=== PATIENT | female | born 1955 | race Caucasian/White ===

== ENCOUNTER 2024-12-24 14:08 | Inpatient (IN) | payer MEDICARE, OTHER ==
[~2024-12-24] VITALS: Ht 162.6 cm; Wt 110.9 kg
[2024-12-24] MEDS ORDERED: LEVO150T7 PO (14:19)
[2024-12-24] MEDS ORDERED: GEMFPOW3 (14:19)
[2024-12-24] MEDS ORDERED: POTA-136 PO (14:19)
[2024-12-24] MEDS ORDERED: FURO20TA2 PO (14:19)
[2024-12-24] MEDS ORDERED: ATOR1TAB21 PO (14:19)
[2024-12-24] MEDS ORDERED: HYDR-3490 PO (14:19)
[2024-12-24 14:49] LABS: BASO # 0.0 10^3/uL (0.0-0.2); BASO % 0.4 % (0.0-1.0); EOS # 0.2 10^3/uL (0.0-0.5); EOS % 2.0 % (0.0-3.0); LYMPH # 1.1 10^3/uL (1.5-5.0); LYMPH % 15.4 % (24.0-44.0); MONO # 0.8 10^3/uL (0.0-0.8); MONO % 10.7 % (2.0-8.0); NEUTROPHILS # 5.3 10^3/uL (1.5-8.5); NEUTROPHILS % 71.2 % (36.0-66.0); PLATELET COUNT, AUTOMATED 198 10^3/uL (150-450)
[2024-12-24 15:13] LABS: ALT/SGPT 19.0 U/L (7.0-40); AST/SGOT 23.0 U/L (<34); CALCIUM LEVEL 9.1 MG/DL (8.3-10.6); CARBON DIOXIDE LEVEL 39.0 MMOL/L (20-31); CHLORIDE LEVEL 90.0 MMOL/L (98-107); CREATININE FOR GFR 0.86 MG/DL (0.55-1.30); GLOMERULAR FILTRATION RATE 73.1 (>45); MAGNESIUM LEVEL 2.1 MG/DL (1.8-2.4); POTASSIUM SERUM 4.3 MMOL/L (3.5-5.1); SODIUM LEVEL 136.0 MMOL/L (136-145)
[2024-12-24] MEDS: FUROSEMIDE 40 MG/4 ML VIAL IV ONE (16:00)
[2024-12-24 16:09] LABS: FREE T4 0.82 NG/DL (0.89-1.76)
[2024-12-24] MEDS: MORPHINE 2 MG/ML 1 ML VIAL IV ONE (16:38)
[2024-12-24] MEDS ORDERED: FUROSEMIDE 40 MG/4 ML VIAL IV SCH (17:00)
[2024-12-24] MEDS ORDERED: HOME MED LIST COMPLETE! XX SCH (17:50)
[2024-12-24] MEDS ORDERED: LOPI600T PO (17:50)
[2024-12-24 18:00] LABS: CK-MB VALUE MASS 1.4 NG/ML (<3.6)
[2024-12-24] MEDS ORDERED: MAALOX 30 ML SUSP *UDC PO PRN (18:00)
[2024-12-24] MEDS ORDERED: MOM 30 ML SUSPENSION UDC PO PRN (18:00)
[2024-12-24 18:02] LABS: CPK CREATINE PHOSPHOKINASE 35.0 U/L (34-145); MB/CK RELATIVE INDEX 4.0 (< OR =4)
[2024-12-24 19:55] LABS: ESTIMATED AVERAGE GLUCOSE 134.0 MG/DL (60-110)
[2024-12-24 19:59] LABS: CHOLESTEROL LEVEL 153.0 MG/DL (<200); CHOLESTEROL RISK RATIO 2.76 (<5); LDL CHOLESTEROL 86.2 MG/DL (<100); NON-HDL-C 97.6 MG/DL; TRIGLYCERIDES LEVEL 57.0 MG/DL (<150)
[2024-12-24] MEDS: ATORVASTATIN 20 MG TAB PO SCH (21:10)
[2024-12-24] MEDS: ENOXAPARIN 40 MG/0.4 ML SYRINGE (J1650 PER 10MG) SC SCH (21:10)
[2024-12-24] MEDS: POTASSIUM CHLORIDE 10MEQ SR TABLET PO SCH (21:10)
[2024-12-24] MEDS: DOCUSATE SODIUM 100 MG CAPSULE PO SCH (21:10)
[2024-12-25] VITALS (23 sets, daily range): BP systolic 98–132; BP diastolic 55–69; TEMP 96.5–97.8; O2SAT 86–97
[2024-12-25 05:33] LABS: BASO # 0.0 10^3/uL (0.0-0.2); BASO % 0.5 % (0.0-1.0); EOS # 0.1 10^3/uL (0.0-0.5); EOS % 1.0 % (0.0-3.0); LYMPH # 0.8 10^3/uL (1.5-5.0); LYMPH % 13.9 % (24.0-44.0); MONO # 0.7 10^3/uL (0.0-0.8); MONO % 12.7 % (2.0-8.0); NEUTROPHILS # 4.2 10^3/uL (1.5-8.5); NEUTROPHILS % 71.6 % (36.0-66.0); PLATELET COUNT, AUTOMATED 206 10^3/uL (150-450)
[2024-12-25 05:56] LABS: CALCIUM LEVEL 8.9 MG/DL (8.3-10.6); CARBON DIOXIDE LEVEL 38.0 MMOL/L (20-31); CHLORIDE LEVEL 90.0 MMOL/L (98-107); CREATININE FOR GFR 0.84 MG/DL (0.55-1.30); GLOMERULAR FILTRATION RATE 75.2 (>45); MAGNESIUM LEVEL 2.2 MG/DL (1.8-2.4); POTASSIUM SERUM 4.1 MMOL/L (3.5-5.1); SODIUM LEVEL 138.0 MMOL/L (136-145)
[2024-12-25 05:58] LABS: FREE T4 0.72 NG/DL (0.89-1.76)
[2024-12-25] MEDS: LEVOTHYROXINE 150 MCG TABLET (0.15 MG) PO SCH (06:43)
[2024-12-25] MEDS: FUROSEMIDE injection 100 MG, VIAL 2 BAG 13MM ADAPTER 1 EACH in NS 100 ML IV SCH (08:16)
[2024-12-25] MEDS ORDERED: FUROSEMIDE 40 MG/4 ML VIAL IV SCH (09:00)
[2024-12-26] VITALS (33 sets, daily range): BP systolic 103–112; BP diastolic 52–72; TEMP 97–97.4; O2SAT 88–98
[2024-12-26 05:17] LABS: BASO # 0.0 10^3/uL (0.0-0.2); BASO % 0.2 % (0.0-1.0); EOS # 0.0 10^3/uL (0.0-0.5); EOS % 0.0 % (0.0-3.0); LYMPH # 0.5 10^3/uL (1.5-5.0); LYMPH % 8.1 % (24.0-44.0); MONO # 0.6 10^3/uL (0.0-0.8); MONO % 10.0 % (2.0-8.0); NEUTROPHILS # 5.1 10^3/uL (1.5-8.5); NEUTROPHILS % 81.2 % (36.0-66.0); PLATELET COUNT, AUTOMATED 208 10^3/uL (150-450)
[2024-12-26 05:42] LABS: CALCIUM LEVEL 9.6 MG/DL (8.3-10.6); CARBON DIOXIDE LEVEL 37.0 MMOL/L (20-31); CHLORIDE LEVEL 89.0 MMOL/L (98-107); CREATININE FOR GFR 1.22 MG/DL (0.55-1.30); GLOMERULAR FILTRATION RATE 48.0 (>45); MAGNESIUM LEVEL 2.3 MG/DL (1.8-2.4); POTASSIUM SERUM 4.9 MMOL/L (3.5-5.1); SODIUM LEVEL 139.0 MMOL/L (136-145)
[2024-12-26 08:46] LABS: ABG BASE EXCESS 7.9 (-2.0-2.0); ABG HCO3 40.3 MMOL/L (22.0-26.0); ABG O2 SATURATION 97.5 % (95.0-99.0); ABG STANDARD HCO3 31.7 MMOL/L. (22.0-26.0); ABG TOTAL CO2 43.3 MMOL/L (23.0-31.0)
[2024-12-26 08:49] LABS: ABG PARTIAL PRESSURE CO2 97.8 mmHg (35.0-45.0); ABG pH (ARTERIAL) 7.233 UNITS (7.350-7.450)
[2024-12-26 08:51] LABS: ABG PARTIAL PRESSURE O2 99.4 mmHg (75.0-100.0)
[2024-12-26 10:27] LABS: ABG BASE EXCESS 9.5 (-2.0-2.0); ABG HCO3 40.3 MMOL/L (22.0-26.0); ABG O2 SATURATION 94.2 % (95.0-99.0); ABG PARTIAL PRESSURE O2 71.4 mmHg (75.0-100.0); ABG STANDARD HCO3 33.2 MMOL/L. (22.0-26.0); ABG TOTAL CO2 42.9 MMOL/L (23.0-31.0); ABG pH (ARTERIAL) 7.300 UNITS (7.350-7.450)
[2024-12-26 10:30] LABS: ABG PARTIAL PRESSURE CO2 83.8 mmHg (35.0-45.0)
[2024-12-27] VITALS (30 sets, daily range): BP systolic 102–127; BP diastolic 51–57; TEMP 97.1–98; O2SAT 79–98
[2024-12-27 05:48] LABS: BASO # 0.0 10^3/uL (0.0-0.2); BASO % 0.2 % (0.0-1.0); EOS # 0.0 10^3/uL (0.0-0.5); EOS % 0.3 % (0.0-3.0); LYMPH # 0.6 10^3/uL (1.5-5.0); LYMPH % 9.5 % (24.0-44.0); MONO # 0.7 10^3/uL (0.0-0.8); MONO % 10.6 % (2.0-8.0); NEUTROPHILS # 5.3 10^3/uL (1.5-8.5); NEUTROPHILS % 79.1 % (36.0-66.0); PLATELET COUNT, AUTOMATED 169 10^3/uL (150-450)
[2024-12-27 06:11] LABS: CALCIUM LEVEL 9.3 MG/DL (8.3-10.6); CARBON DIOXIDE LEVEL 38.0 MMOL/L (20-31); CHLORIDE LEVEL 90.0 MMOL/L (98-107); CREATININE FOR GFR 1.25 MG/DL (0.55-1.30); GLOMERULAR FILTRATION RATE 46.7 (>45); MAGNESIUM LEVEL 2.4 MG/DL (1.8-2.4); POTASSIUM SERUM 4.7 MMOL/L (3.5-5.1); SODIUM LEVEL 136.0 MMOL/L (136-145)
[2024-12-27] MEDS: NYSTATIN 100,000 UNITS/GM TOPICAL PWD 15 GM TOP PRN (08:30)
[2024-12-27] MEDS: LINEZOLID 600 MG TABLET PO SCH (09:51)
[2024-12-28] VITALS (30 sets, daily range): BP systolic 108–119; BP diastolic 56–59; TEMP 96.6–97.9; O2SAT 88–98
[2024-12-28 06:05] LABS: BASO # 0.0 10^3/uL (0.0-0.2); BASO % 0.2 % (0.0-1.0); EOS # 0.1 10^3/uL (0.0-0.5); EOS % 2.3 % (0.0-3.0); LYMPH # 0.8 10^3/uL (1.5-5.0); LYMPH % 12.5 % (24.0-44.0); MONO # 0.8 10^3/uL (0.0-0.8); MONO % 13.3 % (2.0-8.0); NEUTROPHILS # 4.4 10^3/uL (1.5-8.5); NEUTROPHILS % 71.4 % (36.0-66.0); PLATELET COUNT, AUTOMATED 148 10^3/uL (150-450)
[2024-12-28 06:28] LABS: CALCIUM LEVEL 9.6 MG/DL (8.3-10.6); CARBON DIOXIDE LEVEL > 40.0 MMOL/L (20-31); CHLORIDE LEVEL 91 MMOL/L (98-107); CREATININE FOR GFR 1.01 MG/DL (0.55-1.30); GLOMERULAR FILTRATION RATE 60.3 (>45); MAGNESIUM LEVEL 2.4 MG/DL (1.8-2.4); POTASSIUM SERUM 4.3 MMOL/L (3.5-5.1); SODIUM LEVEL 139 MMOL/L (136-145)
[2024-12-28] MEDS: FUROSEMIDE 40 MG/4 ML VIAL IV ONE (10:49)
[2024-12-29] VITALS (32 sets, daily range): BP systolic 109–125; BP diastolic 56–66; TEMP 96–98.5; O2SAT 84–98
[2024-12-29 05:33] LABS: BASO # 0.0 10^3/uL (0.0-0.2); BASO % 0.2 % (0.0-1.0); EOS # 0.2 10^3/uL (0.0-0.5); EOS % 3.0 % (0.0-3.0); LYMPH # 0.7 10^3/uL (1.5-5.0); LYMPH % 13.6 % (24.0-44.0); MONO # 0.7 10^3/uL (0.0-0.8); MONO % 15.0 % (2.0-8.0); NEUTROPHILS # 3.3 10^3/uL (1.5-8.5); NEUTROPHILS % 67.8 % (36.0-66.0); PLATELET COUNT, AUTOMATED 129 10^3/uL (150-450)
[2024-12-29 05:57] LABS: CALCIUM LEVEL 9.5 MG/DL (8.3-10.6); CARBON DIOXIDE LEVEL > 40.0 MMOL/L (20-31); CHLORIDE LEVEL 92 MMOL/L (98-107); CREATININE FOR GFR 0.85 MG/DL (0.55-1.30); GLOMERULAR FILTRATION RATE 74.1 (>45); MAGNESIUM LEVEL 2.2 MG/DL (1.8-2.4); POTASSIUM SERUM 4.0 MMOL/L (3.5-5.1); SODIUM LEVEL 143 MMOL/L (136-145)
[2024-12-29 10:07] LABS: ABG BASE EXCESS 14.6 (-2.0-2.0); ABG HCO3 45.1 MMOL/L (22.0-26.0); ABG O2 SATURATION 91.3 % (95.0-99.0); ABG PARTIAL PRESSURE O2 64.5 mmHg (75.0-100.0); ABG STANDARD HCO3 38.4 MMOL/L. (22.0-26.0); ABG TOTAL CO2 47.6 MMOL/L (23.0-31.0); ABG pH (ARTERIAL) 7.359 UNITS (7.350-7.450)
[2024-12-29 10:08] LABS: ABG PARTIAL PRESSURE CO2 81.9 mmHg (35.0-45.0)
[2024-12-29] MEDS: FUROSEMIDE 100 MG/10 ML VIAL IV ONE (10:30)
[2024-12-30] VITALS (31 sets, daily range): BP systolic 102–121; BP diastolic 56–58; TEMP 96.3–98.5; O2SAT 82–99
[2024-12-30 05:43] LABS: BASO # 0.0 10^3/uL (0.0-0.2); BASO % 0.4 % (0.0-1.0); EOS # 0.3 10^3/uL (0.0-0.5); EOS % 5.0 % (0.0-3.0); LYMPH # 0.6 10^3/uL (1.5-5.0); LYMPH % 11.3 % (24.0-44.0); MONO # 0.7 10^3/uL (0.0-0.8); MONO % 13.2 % (2.0-8.0); NEUTROPHILS # 3.6 10^3/uL (1.5-8.5); NEUTROPHILS % 69.7 % (36.0-66.0); PLATELET COUNT, AUTOMATED 110 10^3/uL (150-450)
[2024-12-30 06:17] LABS: CALCIUM LEVEL 9.5 MG/DL (8.3-10.6); CARBON DIOXIDE LEVEL > 40.0 MMOL/L (20-31); CHLORIDE LEVEL 91 MMOL/L (98-107); CREATININE FOR GFR 0.80 MG/DL (0.55-1.30); GLOMERULAR FILTRATION RATE 79.7 (>45); MAGNESIUM LEVEL 1.9 MG/DL (1.8-2.4); POTASSIUM SERUM 3.9 MMOL/L (3.5-5.1); SODIUM LEVEL 143 MMOL/L (136-145)
[2024-12-30] MEDS: DOXYCYCLINE HYCLATE 100 MG TABLET PO SCH (08:29)
[2024-12-30] MEDS: FUROSEMIDE 40 MG TAB PO SCH (11:40)
[2024-12-30] MEDS: RIVAROXABAN 10MG TAB PO SCH (17:47)
[2024-12-31] VITALS (27 sets, daily range): BP systolic 112–119; BP diastolic 55–59; TEMP 97.4–97.7; O2SAT 90–97
[2024-12-31 04:57] LABS: BASO # 0.0 10^3/uL (0.0-0.2); BASO % 0.2 % (0.0-1.0); EOS # 0.3 10^3/uL (0.0-0.5); EOS % 4.4 % (0.0-3.0); LYMPH # 0.7 10^3/uL (1.5-5.0); LYMPH % 10.1 % (24.0-44.0); MONO # 0.8 10^3/uL (0.0-0.8); MONO % 12.6 % (2.0-8.0); NEUTROPHILS # 4.8 10^3/uL (1.5-8.5); NEUTROPHILS % 72.2 % (36.0-66.0); PLATELET COUNT, AUTOMATED 109 10^3/uL (150-450)
[2024-12-31 05:29] LABS: CALCIUM LEVEL 9.1 MG/DL (8.3-10.6); CARBON DIOXIDE LEVEL > 40.0 MMOL/L (20-31); CHLORIDE LEVEL 90 MMOL/L (98-107); CREATININE FOR GFR 0.78 MG/DL (0.55-1.30); GLOMERULAR FILTRATION RATE 82.2 (>45); MAGNESIUM LEVEL 1.5 MG/DL (1.8-2.4); POTASSIUM SERUM 3.3 MMOL/L (3.5-5.1); SODIUM LEVEL 143 MMOL/L (136-145)
[2024-12-31] MEDS: POTASSIUM CHLORIDE 10MEQ SR TABLET PO ONE (08:21)
[2024-12-31] MEDS: MAG SULF 1GM/100ML (MAG RUN) 1 GM in IV 1 EA IV SCH (08:21)
[2024-12-31] MEDS: ACETAMINOPHEN 325 MG TAB PO PRN (16:15)
[2024-12-31] MEDS: POTASSIUM CHLORIDE 10MEQ SR TABLET PO SCH (21:12)
[2025-01-01] VITALS (43 sets, daily range): BP systolic 110–127; BP diastolic 53–64; TEMP 96.5–98.2; O2SAT 84–98
[2025-01-01 05:52] LABS: BASO # 0.0 10^3/uL (0.0-0.2); BASO % 0.2 % (0.0-1.0); EOS # 0.4 10^3/uL (0.0-0.5); EOS % 5.2 % (0.0-3.0); LYMPH # 0.8 10^3/uL (1.5-5.0); LYMPH % 9.9 % (24.0-44.0); MONO # 0.9 10^3/uL (0.0-0.8); MONO % 11.4 % (2.0-8.0); NEUTROPHILS # 6.1 10^3/uL (1.5-8.5); NEUTROPHILS % 73.2 % (36.0-66.0); PLATELET COUNT, AUTOMATED 108 10^3/uL (150-450)
[2025-01-01 06:13] LABS: CALCIUM LEVEL 9.1 MG/DL (8.3-10.6); CARBON DIOXIDE LEVEL > 40.0 MMOL/L (20-31); CHLORIDE LEVEL 90 MMOL/L (98-107); CREATININE FOR GFR 0.74 MG/DL (0.55-1.30); GLOMERULAR FILTRATION RATE 87.5 (>45); MAGNESIUM LEVEL 1.8 MG/DL (1.8-2.4); POTASSIUM SERUM 3.7 MMOL/L (3.5-5.1); SODIUM LEVEL 143 MMOL/L (136-145)
[2025-01-01 10:16] LABS: ABG BASE EXCESS 13.5 (-2.0-2.0); ABG HCO3 43.8 MMOL/L (22.0-26.0); ABG O2 SATURATION 86.4 % (95.0-99.0); ABG PARTIAL PRESSURE O2 52.5 mmHg (75.0-100.0); ABG STANDARD HCO3 37.0 MMOL/L. (22.0-26.0); ABG TOTAL CO2 46.2 MMOL/L (23.0-31.0); ABG pH (ARTERIAL) 7.357 UNITS (7.350-7.450)
[2025-01-01 10:19] LABS: ABG PARTIAL PRESSURE CO2 79.8 mmHg (35.0-45.0)
[2025-01-01] MEDS: FUROSEMIDE 100 MG/10 ML VIAL IV SCH (17:44)
[2025-01-02] VITALS (30 sets, daily range): BP systolic 122–136; BP diastolic 58–68; TEMP 96.6–98.1; O2SAT 85–100
[2025-01-02 05:41] LABS: BASO # 0.0 10^3/uL (0.0-0.2); BASO % 0.4 % (0.0-1.0); EOS # 0.4 10^3/uL (0.0-0.5); EOS % 5.0 % (0.0-3.0); LYMPH # 0.8 10^3/uL (1.5-5.0); LYMPH % 10.3 % (24.0-44.0); MONO # 0.9 10^3/uL (0.0-0.8); MONO % 11.0 % (2.0-8.0); NEUTROPHILS # 5.9 10^3/uL (1.5-8.5); NEUTROPHILS % 72.9 % (36.0-66.0)
[2025-01-02 06:07] LABS: CALCIUM LEVEL 8.9 MG/DL (8.3-10.6); CARBON DIOXIDE LEVEL > 40.0 MMOL/L (20-31); CHLORIDE LEVEL 92 MMOL/L (98-107); CREATININE FOR GFR 0.70 MG/DL (0.55-1.30); GLOMERULAR FILTRATION RATE > 90.0 (>45); MAGNESIUM LEVEL 1.6 MG/DL (1.8-2.4); POTASSIUM SERUM 3.6 MMOL/L (3.5-5.1); SODIUM LEVEL 147 MMOL/L (136-145)
[2025-01-02] MEDS: FUROSEMIDE injection 100 MG, VIAL 2 BAG 13MM ADAPTER 1 EACH in NS 100 ML IV SCH (10:14)
[2025-01-02 12:06] LABS: PLATELET COUNT, AUTOMATED 87 10^3/uL (150-450)
[2025-01-02] MEDS: POTASSIUM CHLORIDE 10MEQ SR TABLET PO SCH (16:59)
[2025-01-03] VITALS (29 sets, daily range): BP systolic 117–156; BP diastolic 48–65; TEMP 97–98; O2SAT 88–96
[2025-01-03 05:36] LABS: BASO # 0.0 10^3/uL (0.0-0.2); BASO % 0.5 % (0.0-1.0); EOS # 0.5 10^3/uL (0.0-0.5); EOS % 5.8 % (0.0-3.0); LYMPH # 1.1 10^3/uL (1.5-5.0); LYMPH % 14.2 % (24.0-44.0); MONO # 0.8 10^3/uL (0.0-0.8); MONO % 10.4 % (2.0-8.0); NEUTROPHILS # 5.3 10^3/uL (1.5-8.5); NEUTROPHILS % 68.7 % (36.0-66.0)
[2025-01-03 05:41] LABS: PLATELET COUNT, AUTOMATED 90 10^3/uL (150-450)
[2025-01-03 05:56] LABS: CALCIUM LEVEL 8.2 MG/DL (8.3-10.6); CARBON DIOXIDE LEVEL > 40.0 MMOL/L (20-31); CHLORIDE LEVEL 93 MMOL/L (98-107); CREATININE FOR GFR 0.70 MG/DL (0.55-1.30); GLOMERULAR FILTRATION RATE > 90.0 (>45); MAGNESIUM LEVEL 1.4 MG/DL (1.8-2.4); POTASSIUM SERUM 3.3 MMOL/L (3.5-5.1); SODIUM LEVEL 146 MMOL/L (136-145)
[2025-01-03] MEDS: MAG SULF 1GM/100ML (MAG RUN) 1 GM in IV 1 EA IV SCH (09:34)
[2025-01-03] MEDS: MAGNESIUM GLUCONATE 500 MG TAB PO SCH (09:35)
[2025-01-03 10:17] LABS: INR 1.18
[2025-01-03 10:35] LABS: IRON (FE) 105.0 UG/DL (50-170); PERCENT SATURATION 40.1 % (13.2-45.0)
[2025-01-03 10:38] LABS: VITAMIN B12 LEVEL 1117.0 PG/ML (211-911)
[2025-01-03 10:56] LABS: COLLAGEN EPINEPHRINE 108 SECONDS (74-162)
[2025-01-03] MEDS ORDERED: DEXTROSE 50% 50 ML SYRINGE IV PRN (11:50)
[2025-01-03] MEDS ORDERED: GLUCOSE 4 GM CHEW PO PRN (11:50)
[2025-01-03] MEDS ORDERED: GLUCAGON INJ 1 MG VIAL SC PRN (11:50)
[2025-01-03] MEDS ORDERED: INSULIN LISPRO (NovoLOG) PER UNIT SC SCH ×2 (12:00→21:00)
[2025-01-03 12:34] LABS: ESTIMATED AVERAGE GLUCOSE 134.0 MG/DL (60-110)
[2025-01-04] VITALS (26 sets, daily range): BP systolic 102–131; BP diastolic 53–60; TEMP 96.6–97.4; O2SAT 88–98
[2025-01-04 05:57] LABS: BASO # 0.1 10^3/uL (0.0-0.2); BASO % 0.6 % (0.0-1.0); EOS # 0.4 10^3/uL (0.0-0.5); EOS % 5.0 % (0.0-3.0); LYMPH # 1.1 10^3/uL (1.5-5.0); LYMPH % 14.3 % (24.0-44.0); MONO # 1.0 10^3/uL (0.0-0.8); MONO % 12.4 % (2.0-8.0); NEUTROPHILS # 5.3 10^3/uL (1.5-8.5); NEUTROPHILS % 67.3 % (36.0-66.0)
[2025-01-04 06:02] LABS: PLATELET COUNT, AUTOMATED 89 10^3/uL (150-450)
[2025-01-04 06:24] LABS: CALCIUM LEVEL 8.6 MG/DL (8.3-10.6); CARBON DIOXIDE LEVEL > 40.0 MMOL/L (20-31); CHLORIDE LEVEL 91 MMOL/L (98-107); CREATININE FOR GFR 0.61 MG/DL (0.55-1.30); GLOMERULAR FILTRATION RATE > 90.0 (>45); MAGNESIUM LEVEL 1.8 MG/DL (1.8-2.4); POTASSIUM SERUM 3.3 MMOL/L (3.5-5.1); SODIUM LEVEL 145 MMOL/L (136-145)
[2025-01-04] MEDS ORDERED: POTASSIUM CHLORIDE 10MEQ SR TABLET PO SCH (10:00)
[2025-01-04] MEDS: POTASSIUM CHLORIDE 10MEQ SR TABLET PO ONE (11:27)
[2025-01-04] MEDS: POTASSIUM CHLORIDE 10MEQ SR TABLET PO SCH (17:40)
[2025-01-05] VITALS (28 sets, daily range): BP systolic 97–134; BP diastolic 53–66; TEMP 97.2–98; O2SAT 88–97
[2025-01-05 06:53] LABS: BASO # 0.1 10^3/uL (0.0-0.2); BASO % 0.8 % (0.0-1.0); EOS # 0.4 10^3/uL (0.0-0.5); EOS % 5.6 % (0.0-3.0); LYMPH # 1.0 10^3/uL (1.5-5.0); LYMPH % 15.6 % (24.0-44.0); MONO # 0.8 10^3/uL (0.0-0.8); MONO % 12.8 % (2.0-8.0); NEUTROPHILS # 4.2 10^3/uL (1.5-8.5); NEUTROPHILS % 64.9 % (36.0-66.0)
[2025-01-05 06:56] LABS: PLATELET COUNT, AUTOMATED 84 10^3/uL (150-450)
[2025-01-05 07:35] LABS: CALCIUM LEVEL 8.5 MG/DL (8.3-10.6); CARBON DIOXIDE LEVEL > 40.0 MMOL/L (20-31); CHLORIDE LEVEL 94 MMOL/L (98-107); CREATININE FOR GFR 0.63 MG/DL (0.55-1.30); GLOMERULAR FILTRATION RATE > 90.0 (>45); MAGNESIUM LEVEL 1.7 MG/DL (1.8-2.4); POTASSIUM SERUM 3.6 MMOL/L (3.5-5.1); SODIUM LEVEL 148 MMOL/L (136-145)
[2025-01-05] MEDS: POTASSIUM CHLORIDE 10MEQ SR TABLET PO SCH (09:54)
[2025-01-06] VITALS (25 sets, daily range): BP systolic 115–134; BP diastolic 56–66; TEMP 96–97.3; O2SAT 92–100
[2025-01-06 05:49] LABS: BASO # 0.1 10^3/uL (0.0-0.2); BASO % 0.9 % (0.0-1.0); EOS # 0.4 10^3/uL (0.0-0.5); EOS % 5.5 % (0.0-3.0); LYMPH # 1.1 10^3/uL (1.5-5.0); LYMPH % 17.0 % (24.0-44.0); MONO # 0.9 10^3/uL (0.0-0.8); MONO % 12.6 % (2.0-8.0); NEUTROPHILS # 4.3 10^3/uL (1.5-8.5); NEUTROPHILS % 63.4 % (36.0-66.0)
[2025-01-06 05:55] LABS: PLATELET COUNT, AUTOMATED 85 10^3/uL (150-450)
[2025-01-06 06:13] LABS: CALCIUM LEVEL 8.8 MG/DL (8.3-10.6); CARBON DIOXIDE LEVEL > 40.0 MMOL/L (20-31); CHLORIDE LEVEL 93 MMOL/L (98-107); CREATININE FOR GFR 0.67 MG/DL (0.55-1.30); GLOMERULAR FILTRATION RATE > 90.0 (>45); MAGNESIUM LEVEL 1.8 MG/DL (1.8-2.4); POTASSIUM SERUM 4.2 MMOL/L (3.5-5.1); SODIUM LEVEL 148 MMOL/L (136-145)
[2025-01-07] VITALS (15 sets, daily range): BP systolic 102–123; BP diastolic 58–63; TEMP 95.3–97.9; O2SAT 86–99
[2025-01-07 05:34] LABS: BASO # 0.0 10^3/uL (0.0-0.2); BASO % 0.5 % (0.0-1.0); EOS # 0.4 10^3/uL (0.0-0.5); EOS % 4.8 % (0.0-3.0); LYMPH # 1.3 10^3/uL (1.5-5.0); LYMPH % 17.2 % (24.0-44.0); MONO # 1.0 10^3/uL (0.0-0.8); MONO % 12.9 % (2.0-8.0); NEUTROPHILS # 4.8 10^3/uL (1.5-8.5); NEUTROPHILS % 64.2 % (36.0-66.0); PLATELET COUNT, AUTOMATED 110 10^3/uL (150-450)
[2025-01-07 06:00] LABS: CALCIUM LEVEL 9.0 MG/DL (8.3-10.6); CARBON DIOXIDE LEVEL > 40.0 MMOL/L (20-31); CHLORIDE LEVEL 90 MMOL/L (98-107); CREATININE FOR GFR 0.72 MG/DL (0.55-1.30); GLOMERULAR FILTRATION RATE > 90.0 (>45); MAGNESIUM LEVEL 2.0 MG/DL (1.8-2.4); POTASSIUM SERUM 3.9 MMOL/L (3.5-5.1); SODIUM LEVEL 149 MMOL/L (136-145)
[2025-01-07 12:29] LABS: KETONE, URINE AUTO RFX NEGATIVE (NEGATIVE); LEUKOCYTE ESTERASE UR AUTO RFX NEGATIVE (NEGATIVE); MUCUS, URINE RFX SMALL (NEGATIVE); NITRITE, URINE AUTO RFX NEGATIVE (NEGATIVE); RBC, URINE AUTO RFX TNTC /HPF (0-3); SQUAM EPITHELIAL CELL UR AURFX 0 /HPF (0-6); WBC, URINE AUTO RFX 9 /HPF (0-3)
[2025-01-07 16:55] LABS: HEP INDUCED PLT AB PATIENT OD 0.232 OD UNITS (<=0.300); HEPARIN INDUCED PLATELET ABY Negative (Negative)
[2025-01-07 18:37] LABS: UNFRACTIONATED HEPARIN HI DOSE 0 % Release; UNFRACTIONATED HEPARIN INTERP Negative (Negative); UNFRACTIONATED HEPARIN LOW 0 % Release; UNFRACTIONATED HEPARIN LOW DOS 0 % Release
[2025-01-08 03:53] VITALS: BP 115/60; TEMP 97.3; O2SAT 87
[2025-01-08 04:00] VITALS: O2SAT 92
[2025-01-08 08:43] LABS: BASO # 0.0 10^3/uL (0.0-0.2); BASO % 0.6 % (0.0-1.0); EOS # 0.3 10^3/uL (0.0-0.5); EOS % 4.5 % (0.0-3.0); LYMPH # 1.0 10^3/uL (1.5-5.0); LYMPH % 15.9 % (24.0-44.0); MONO # 0.7 10^3/uL (0.0-0.8); MONO % 10.5 % (2.0-8.0); NEUTROPHILS # 4.4 10^3/uL (1.5-8.5); NEUTROPHILS % 68.0 % (36.0-66.0); PLATELET COUNT, AUTOMATED 101 10^3/uL (150-450)
[2025-01-08 09:12] LABS: ALT/SGPT 26 U/L (7.0-40); AST/SGOT 38 U/L (<34); CALCIUM LEVEL 8.8 MG/DL (8.3-10.6); CARBON DIOXIDE LEVEL > 40.0 MMOL/L (20-31); CHLORIDE LEVEL 89 MMOL/L (98-107); CREATININE FOR GFR 0.68 MG/DL (0.55-1.30); GLOMERULAR FILTRATION RATE > 90.0 (>45); MAGNESIUM LEVEL 1.9 MG/DL (1.8-2.4); PHOSPHORUS LEVEL 4.1 MG/DL (2.4-5.1); POTASSIUM SERUM 3.3 MMOL/L (3.5-5.1); SODIUM LEVEL 144 MMOL/L (136-145)
[2025-01-08] MEDS: POTASSIUM CHLORIDE 10MEQ SR TABLET PO SCH (10:29)
[2025-01-08 12:04] VITALS: BP 122/58; TEMP 97.2; O2SAT 90
[2025-01-08] MEDS: CLOTRIMAZOLE 1% TOPICAL CREAM 30 GM TOP SCH (13:41)
[2025-01-08] MEDS: HEPARIN SOD 5000 UNITS/ML 1 ML VIAL/SYRINGE SQ SCH (13:41)
[2025-01-08] MEDS: VANICREAM MOISTURIZING SKIN CREAM 113GM TUBE TOP SCH (13:42)
[2025-01-08 21:35] VITALS: BP 120/58; TEMP 97.3; O2SAT 94
[2025-01-09 03:27] VITALS: BP 120/62; TEMP 97.7; O2SAT 94
[2025-01-09 06:34] LABS: BASO # 0.0 10^3/uL (0.0-0.2); BASO % 0.6 % (0.0-1.0); EOS # 0.3 10^3/uL (0.0-0.5); EOS % 4.6 % (0.0-3.0); LYMPH # 1.0 10^3/uL (1.5-5.0); LYMPH % 15.4 % (24.0-44.0); MONO # 0.8 10^3/uL (0.0-0.8); MONO % 11.6 % (2.0-8.0); NEUTROPHILS # 4.6 10^3/uL (1.5-8.5); NEUTROPHILS % 67.4 % (36.0-66.0); PLATELET COUNT, AUTOMATED 119 10^3/uL (150-450)
[2025-01-09 07:08] LABS: CALCIUM LEVEL 9.1 MG/DL (8.3-10.6); CARBON DIOXIDE LEVEL > 40.0 MMOL/L (20-31); CHLORIDE LEVEL 90 MMOL/L (98-107); CREATININE FOR GFR 0.65 MG/DL (0.55-1.30); GLOMERULAR FILTRATION RATE > 90.0 (>45); MAGNESIUM LEVEL 2.0 MG/DL (1.8-2.4); POTASSIUM SERUM 3.7 MMOL/L (3.5-5.1); SODIUM LEVEL 146 MMOL/L (136-145)
[2025-01-09 12:07] VITALS: BP 112/63; TEMP 97.3; O2SAT 88
[2025-01-09 20:10] VITALS: BP 112/64; TEMP 97.7; O2SAT 90
[2025-01-10] VITALS (8 sets, daily range): BP systolic 114–118; BP diastolic 59–60; TEMP 97.3–97.9; O2SAT 87–97
[2025-01-10 06:55] LABS: BASO # 0.0 10^3/uL (0.0-0.2); BASO % 0.6 % (0.0-1.0); EOS # 0.3 10^3/uL (0.0-0.5); EOS % 4.9 % (0.0-3.0); LYMPH # 1.2 10^3/uL (1.5-5.0); LYMPH % 17.9 % (24.0-44.0); MONO # 0.7 10^3/uL (0.0-0.8); MONO % 9.7 % (2.0-8.0); NEUTROPHILS # 4.5 10^3/uL (1.5-8.5); NEUTROPHILS % 66.3 % (36.0-66.0); PLATELET COUNT, AUTOMATED 125 10^3/uL (150-450)
[2025-01-10 07:25] LABS: CALCIUM LEVEL 9.0 MG/DL (8.3-10.6); CARBON DIOXIDE LEVEL > 40.0 MMOL/L (20-31); CHLORIDE LEVEL 91 MMOL/L (98-107); CREATININE FOR GFR 0.74 MG/DL (0.55-1.30); GLOMERULAR FILTRATION RATE 87.5 (>45); MAGNESIUM LEVEL 2.1 MG/DL (1.8-2.4); POTASSIUM SERUM 3.6 MMOL/L (3.5-5.1); SODIUM LEVEL 144 MMOL/L (136-145)
[2025-01-10] MEDS: POTASSIUM CHLORIDE 10MEQ SR TABLET PO ONE (15:23)
[2025-01-11 03:10] VITALS: O2SAT 91
[2025-01-11 03:25] VITALS: BP 113/58; TEMP 97.3; O2SAT 90
[2025-01-11 07:15] LABS: BASO # 0.0 10^3/uL (0.0-0.2); BASO % 0.6 % (0.0-1.0); EOS # 0.3 10^3/uL (0.0-0.5); EOS % 4.5 % (0.0-3.0); LYMPH # 1.1 10^3/uL (1.5-5.0); LYMPH % 16.1 % (24.0-44.0); MONO # 0.6 10^3/uL (0.0-0.8); MONO % 9.1 % (2.0-8.0); NEUTROPHILS # 4.8 10^3/uL (1.5-8.5); NEUTROPHILS % 69.0 % (36.0-66.0); PLATELET COUNT, AUTOMATED 112 10^3/uL (150-450)
[2025-01-11 08:02] LABS: CALCIUM LEVEL 8.7 MG/DL (8.3-10.6); CARBON DIOXIDE LEVEL > 40.0 MMOL/L (20-31); CHLORIDE LEVEL 90 MMOL/L (98-107); CREATININE FOR GFR 0.70 MG/DL (0.55-1.30); GLOMERULAR FILTRATION RATE > 90.0 (>45); MAGNESIUM LEVEL 2.1 MG/DL (1.8-2.4); POTASSIUM SERUM 3.3 MMOL/L (3.5-5.1); SODIUM LEVEL 143 MMOL/L (136-145)
[2025-01-11] MEDS: POTASSIUM CHLORIDE 10MEQ SR TABLET PO ONE (09:35)
[2025-01-11 19:49] VITALS: BP 116/60; TEMP 97.7; O2SAT 92
[2025-01-11] MEDS: POTASSIUM CHLORIDE 10MEQ SR TABLET PO SCH (21:36)
[2025-01-11 23:06] LABS: CALCIUM LEVEL 9.1 MG/DL (8.3-10.6); CARBON DIOXIDE LEVEL > 40.0 MMOL/L (20-31); CHLORIDE LEVEL 90 MMOL/L (98-107); CREATININE FOR GFR 0.67 MG/DL (0.55-1.30); GLOMERULAR FILTRATION RATE > 90.0 (>45); POTASSIUM SERUM 3.8 MMOL/L (3.5-5.1); SODIUM LEVEL 140 MMOL/L (136-145)
[2025-01-12] VITALS (7 sets, daily range): BP systolic 110–122; BP diastolic 56–64; TEMP 97.2–97.5; O2SAT 85–95
[2025-01-12 06:24] LABS: BASO # 0.0 10^3/uL (0.0-0.2); BASO % 0.5 % (0.0-1.0); EOS # 0.4 10^3/uL (0.0-0.5); EOS % 6.3 % (0.0-3.0); LYMPH # 1.2 10^3/uL (1.5-5.0); LYMPH % 19.4 % (24.0-44.0); MONO # 0.6 10^3/uL (0.0-0.8); MONO % 9.7 % (2.0-8.0); NEUTROPHILS # 3.9 10^3/uL (1.5-8.5); NEUTROPHILS % 63.1 % (36.0-66.0); PLATELET COUNT, AUTOMATED 131 10^3/uL (150-450)
[2025-01-12 06:44] LABS: CALCIUM LEVEL 8.9 MG/DL (8.3-10.6); CARBON DIOXIDE LEVEL > 40.0 MMOL/L (20-31); CHLORIDE LEVEL 92 MMOL/L (98-107); CREATININE FOR GFR 0.66 MG/DL (0.55-1.30); GLOMERULAR FILTRATION RATE > 90.0 (>45); MAGNESIUM LEVEL 2.0 MG/DL (1.8-2.4); POTASSIUM SERUM 3.3 MMOL/L (3.5-5.1); SODIUM LEVEL 143 MMOL/L (136-145)
[2025-01-12] MEDS: POTASSIUM CHLORIDE 10MEQ SR TABLET PO SCH (08:06)
[2025-01-13 04:00] VITALS: BP 114/56; TEMP 97.7; O2SAT 93
[2025-01-13 06:39] LABS: BASO # 0.0 10^3/uL (0.0-0.2); BASO % 0.4 % (0.0-1.0); EOS # 0.4 10^3/uL (0.0-0.5); EOS % 5.9 % (0.0-3.0); LYMPH # 1.0 10^3/uL (1.5-5.0); LYMPH % 15.1 % (24.0-44.0); MONO # 0.6 10^3/uL (0.0-0.8); MONO % 9.3 % (2.0-8.0); NEUTROPHILS # 4.7 10^3/uL (1.5-8.5); NEUTROPHILS % 68.4 % (36.0-66.0); PLATELET COUNT, AUTOMATED 129 10^3/uL (150-450)
[2025-01-13 07:40] LABS: CALCIUM LEVEL 8.6 MG/DL (8.3-10.6); CARBON DIOXIDE LEVEL > 40.0 MMOL/L (20-31); CHLORIDE LEVEL 92 MMOL/L (98-107); CREATININE FOR GFR 0.64 MG/DL (0.55-1.30); GLOMERULAR FILTRATION RATE > 90.0 (>45); MAGNESIUM LEVEL 2.0 MG/DL (1.8-2.4); POTASSIUM SERUM 3.4 MMOL/L (3.5-5.1); SODIUM LEVEL 143 MMOL/L (136-145)
[2025-01-13] MEDS: TORSEMIDE 100 MG TAB PO SCH (10:09)
[2025-01-13] MEDS: SPIRONOLACTONE 50 MG TAB PO SCH (10:09)
[2025-01-13 12:14] VITALS: BP 120/60; TEMP 97.2; O2SAT 93
[2025-01-13] MEDS: POTASSIUM CHLORIDE 10MEQ SR TABLET PO SCH (17:09)
[2025-01-13 20:00] VITALS: BP 115/60; TEMP 97.3; O2SAT 94
[2025-01-14 03:38] VITALS: BP 131/86; TEMP 97.3; O2SAT 90
[2025-01-14 06:40] LABS: BASO # 0.0 10^3/uL (0.0-0.2); BASO % 0.6 % (0.0-1.0); EOS # 0.4 10^3/uL (0.0-0.5); EOS % 6.3 % (0.0-3.0); LYMPH # 1.3 10^3/uL (1.5-5.0); LYMPH % 19.3 % (24.0-44.0); MONO # 0.8 10^3/uL (0.0-0.8); MONO % 10.8 % (2.0-8.0); NEUTROPHILS # 4.3 10^3/uL (1.5-8.5); NEUTROPHILS % 62.3 % (36.0-66.0); PLATELET COUNT, AUTOMATED 158 10^3/uL (150-450)
[2025-01-14 07:11] LABS: CALCIUM LEVEL 9.5 MG/DL (8.3-10.6); CARBON DIOXIDE LEVEL > 40.0 MMOL/L (20-31); CHLORIDE LEVEL 93 MMOL/L (98-107); CREATININE FOR GFR 0.69 MG/DL (0.55-1.30); GLOMERULAR FILTRATION RATE > 90.0 (>45); MAGNESIUM LEVEL 2.1 MG/DL (1.8-2.4); POTASSIUM SERUM 4.1 MMOL/L (3.5-5.1); SODIUM LEVEL 142 MMOL/L (136-145)
[2025-01-14 08:04] VITALS: BP 125/65
[2025-01-14] MEDS ORDERED: TORS100T PO (10:49)
[2025-01-14] MEDS ORDERED: ALDA50TA2 PO (10:49)
== END 2025-01-14 14:20 | disposition home or self-care (01) | DRG 291 ==
LOC: EDBD 14:08 → M ED 14:08 → M ED INP 18:23 → EEVIPCON 18:23 → M PCU 12-25 00:25 → M MSPAV 01-07 10:56
PROVIDERS: ADMIT Internal Medicine; ATTEND Internal Medicine
DX: I11.0 Hypertensive heart disease with heart failure (principal); I50.33 Acute on chronic diastolic (congestive) heart failure; G93.41 Metabolic encephalopathy; J96.22 Acute and chronic respiratory failure with hypercapnia; J96.01 Acute respiratory failure with hypoxia; E87.4 Mixed disorder of acid-base balance; N17.9 Acute kidney failure, unspecified; E66.2 Morbid (severe) obesity with alveolar hypoventilation; Z68.42 Body mass index [BMI] 45.0-49.9, adult; L97.909 Non-pressure chronic ulcer of unspecified part of unspecified lower leg with unspecified severity; L03.116 Cellulitis of left lower limb; L03.115 Cellulitis of right lower limb; E87.0 Hyperosmolality and hypernatremia; E11.9 Type 2 diabetes mellitus without complications; R60.9 Edema, unspecified; E03.9 Hypothyroidism, unspecified; M79.89 Other specified soft tissue disorders; D75.1 Secondary polycythemia; I87.8 Other specified disorders of veins; I89.0 Lymphedema, not elsewhere classified; D69.59 Other secondary thrombocytopenia; I27.20 Pulmonary hypertension, unspecified; I87.2 Venous insufficiency (chronic) (peripheral); E78.5 Hyperlipidemia, unspecified; E83.42 Hypomagnesemia; E87.6 Hypokalemia; R33.9 Retention of urine, unspecified; R31.9 Hematuria, unspecified; Z88.2 Allergy status to sulfonamides; Z79.899 Other long term (current) drug therapy; Z79.890 Hormone replacement therapy